=== PATIENT | female | born 1965 | race Caucasian/White ===

== ENCOUNTER 2018-04-18 18:25 | Emergency (ER) | payer OTHER ==
[2018-04-18] MEDS ORDERED: oxyCODONE/Acetamin 5/325 MG* TAB PO ONE (18:40)
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
[2018-04-18] MEDS ORDERED: Methocarbamol TAB* 500 MG PO ONE (19:38)
[2018-04-18 20:16] VITALS: BP 136/92
== END 2018-04-18 20:11 | disposition home or self-care (01) ==
LOC: ED 18:25
DX: R07.89 Other chest pain (principal); R42 Dizziness and giddiness; R00.2 Palpitations; R06.02 Shortness of breath
CPT/HCPCS: 72125; 72128; 72131; 96361; 96374; 99283; A9270-GY